=== PATIENT | male | born 1980 | race Caucasian/White ===

== ENCOUNTER 2022-06-13 11:54 | Emergency (ER) | payer OTHER, BC ==
[2022-06-13] MEDS ORDERED: fentaNYL 100 MCG/2 ML SDV IM ONE ×2 (12:43→13:46)
== END 2022-06-13 15:19 | disposition home or self-care (01) ==
LOC: JP.ED 11:54
DX: S70.01XA Contusion of right hip, initial encounter (principal); I10 Essential (primary) hypertension; Z79.899 Other long term (current) drug therapy; V39.9XXA Occupant (driver) (passenger) of three-wheeled motor vehicle injured in unspecified traffic accident, initial encounter; Y92.410 Unspecified street and highway as the place of occurrence of the external cause
CPT/HCPCS: 72192; 73502-26-RT; 73502-RT; 96372; 99282; 99284-25; J3010